=== PATIENT | female | born 2000 | race Caucasian/White ===

== ENCOUNTER 2021-05-06 02:51 | Observation (INO) | payer BC ==
[2021-05-06 03:04] VITALS: RESP 18; TEMP 97.9
[2021-05-06] MEDS ORDERED: SODIUM CHLORIDE 0.9% 1,000 ML IV ONE (03:08)
[2021-05-06] MEDS ORDERED: ACETAMINOPHEN TAB 325 MG TAB PO STA (03:19)
--- NOTE | 2021-05-06 03:19 | ED ---
Seizure HPI - General Chief Complaint: Seizure Stated Complaint: Seizure, Neck Pain Time Seen by Provider: 05/06/21 03:02 Source: patient, EMS Mode of arrival: EMS - History of Present Illness Initial Comments: This patient is a 21-year-old woman arriving tonight by ambulance for possible seizure. The patient had been at the home of a family member when she developed some convulsive movements of the head and upper extremities. This lasted quite some time and she had family called her father to bring her home. The patient then developed another episode, the father noted they were close to the EMS station in [place] and a stop there and she was brought here by ambulance. The patient does remain conscious throughout these episodes and is able to follow commands. She has had similar episodes to this going back a number of weeks. The episodes do cause pain in the neck and muscles. The patient did have some labs at another facility. She was scheduled to have MRI of the neck in the coming week but has not had any imaging performed. MD Complaint: possible seizure -: week(s) Description of Episode: tonic-clonic movement -: minutes(s) Witnessed: yes - by bystander Trauma: No Seizure History: none Place: home, other Possible Precipitating Event: none Associated Symptoms: denies other symptoms Treatments Prior to Arrival: benzodiazepines - Related Data Previous Rx's Medication Instructions Recorded LORazepam [Ativan] 1 mg PO TID 3 Days #9 tab 05/06/21 Allergies Allergy/AdvReac Type Severity Reaction Status Date / Time No Known Allergies Allergy Verified 05/06/21 03:07 Review of Systems ROS Statement: Those systems with pertinent positive or pertinent negative responses have been documented in the HPI. ROS Other: All systems not noted in ROS Statement are negative. Constitutional: Denies: fever, chills, weakness Eyes: Denies: eye pain, vision change Respiratory: Denies: cough, dyspnea Cardiovascular: Denies: chest pain, orthopnea, edema, syncope Gastrointestinal: Denies: abdominal pain, vomiting, diarrhea Genitourinary: Denies: dysuria, hematuria Musculoskeletal: Reports: myalgia. Denies: back pain Skin: Denies: rash Neurological: Denies: headache, weakness, numbness, confusion Past Medical History Past Medical History: No Reported History Additional Past Medical History / Comment(s): History of concussion History of Any Multi-Drug Resistant Organisms: None Reported Past Surgical History: No Surgical Hx Reported Past Psychological History: ADD/ADHD Smoking Status: Never smoker Past Alcohol Use History: None Reported Past Drug Use History: None Reported General Exam General appearance: alert, in no apparent distress Head exam: Present: atraumatic, normocephalic Eye exam: Present: normal appearance. Absent: scleral icterus, conjunctival injection ENT exam: Present: normal oropharynx Neck exam: Present: normal inspection, full ROM. Absent: tenderness, meningismus Respiratory exam: Present: normal lung sounds bilaterally. Absent: respiratory distress, wheezes, rales, rhonchi, stridor Cardiovascular Exam: Present: regular rate, normal rhythm, normal heart sounds. Absent: systolic murmur, diastolic murmur, rubs, gallop GI/Abdominal exam: Present: soft. Absent: distended, tenderness, guarding, rebound, rigid, mass Extremities exam: Present: normal inspection, normal capillary refill. Absent: pedal edema, calf tenderness Back exam: Present: normal inspection. Absent: CVA tenderness (R), CVA tenderness (L) Neurological exam: Present: alert, oriented X3, CN II-XII intact. Absent: motor sensory deficit Skin exam: Present: warm, dry, intact, normal color. Absent: rash Course Vital Signs 05/06/21 02:54 Temperature 97.9 F Pulse Rate 87 Respiratory 18 Rate Blood Pressure 112/69 O2 Sat by Pulse 97 Oximetry Medical Decision Making - Medical Decision Making Patient is a 21-year-old woman here to have evaluation of convulsive episodes. The patient's workup here is unremarkable. Patient was about to be discharged to have further follow-up with neurology when she did developed a second episode of the convulsions. They do not appear to be typical of generalized tonic- clonic seizure. The patient does remain conscious, alert, follows commands. The movements do involve of both sides of the body. There is no loss of continence. Given the number of episodes patient is having will admit to have neurology con sultation here. - Lab Data Result diagrams: 05/06/21 03:15 05/06/21 03:15 Lab Results 05/06/21 05/06/21 05/06/21 Range/Units 03:15 03:15 03:15 WBC 8.5 (3.8-10.6) k/uL RBC 3.46 L (3.80-5.40) m/uL Hgb 11.4 (11.4-16.0) gm/dL Hct 33.7 L (34.0-46.0) % MCV 97.4 (80.0-100.0) fL MCH 32.8 (25.0-35.0) pg MCHC 33.7 (31.0-37.0) g/dL RDW 11.8 (11.5-15.5) % Plt Count 178 (150-450) k/uL MPV 7.6 Neutrophils % 63 % Lymphocytes % 26 % Monocytes % 7 % Eosinophils % 1 % Basophils % 0 % Neutrophils # 5.4 (1.3-7.7) k/uL Lymphocytes # 2.2 (1.0-4.8) k/uL Monocytes # 0.6 (0-1.0) k/uL Eosinophils # 0.1 (0-0.7) k/uL Basophils # 0.0 (0-0.2) k/uL Sodium 139 (137-145) mmol/L Potassium 3.8 (3.5-5.1) mmol/L Chloride 112 H (98-107) mmol/L Carbon Dioxide 21 L (22-30) mmol/L Anion Gap 6 mmol/L BUN 18 H (7-17) mg/dL Creatinine 0.73 (0.52-1.04) mg/dL Est GFR (CKD-EPI)AfAm >90 (>60 ml/min/1.73 sqM) Est GFR (CKD-EPI)NonAf >90 (>60 ml/min/1.73 sqM) Glucose 99 (74-99) mg/dL Plasma Lactic Acid Juanito 0.7 (0.7-2.0) mmol/L Calcium 8.1 L (8.4-10.2) mg/dL Magnesium 1.7 (1.6-2.3) mg/dL Total Bilirubin 0.4 (0.2-1.3) mg/dL AST 17 (14-36) U/L ALT 9 (4-34) U/L Alkaline Phosphatase 55 (38-126) U/L Total Protein 5.6 L (6.3-8.2) g/dL Albumin 3.0 L (3.5-5.0) g/dL - EKG Data -: EKG Interpreted by Pr EKG shows normal: sinus rhythm, axis (Normal), intervals (Normal), QRS complexes (Normal), ST-T waves (Normal) Rate: normal (96 bpm) Interpretation: normal EKG Disposition Clinical Impression: Convulsive disorder Disposition: ADMITTED IP TO THIS HOSP Condition: Good Is patient prescribed a controlled substance at d/c from ED?: No
[2021-05-06 03:29] LABS: Basophils % (A) 0 %; Eosinophils # (A) 0.1 k/uL (0-0.7); Eosinophils % (A) 1 %; HCT 33.7 % (34.0-46.0); HGB 11.4 gm/dL (11.4-16.0); Lymphocytes # (A) 2.2 k/uL (1.0-4.8); Lymphocytes % (A) 26 %; MCH 32.8 pg (25.0-35.0); MCHC 33.7 g/dL (31.0-37.0); MCV 97.4 fL (80.0-100.0); Mean Platelet Volume 7.6; Monocytes # (A) 0.6 k/uL (0-1.0); Monocytes % (A) 7 %; Neutrophils # (A) 5.4 k/uL (1.3-7.7); Neutrophils % (A) 63 %; Platelet Count 178 k/uL (150-450); RBC 3.46 m/uL (3.80-5.40); RDW 11.8 % (11.5-15.5); WBC 8.5 k/uL (3.8-10.6)
[2021-05-06 03:53] LABS: ALT 9 U/L (4-34); AST 17 U/L (14-36); African American GFR (CKD) >90 (>60 ml/min/1.73 sqM); Alkaline Phosphatase 55 U/L (38-126); Anion Gap 6 mmol/L; Blood Urea Nitrogen 18 mg/dL (7-17); Calcium 8.1 mg/dL (8.4-10.2); Carbon Dioxide 21 mmol/L (22-30); Chloride 112 mmol/L (98-107); Glucose 99 mg/dL (74-99); Magnesium 1.7 mg/dL (1.6-2.3); Non-African American GFR(CKD) >90 (>60 ml/min/1.73 sqM); Potassium 3.8 mmol/L (3.5-5.1); Sodium 139 mmol/L (137-145); Total Bilirubin 0.4 mg/dL (0.2-1.3); Total Protein 5.6 g/dL (6.3-8.2)
[2021-05-06] MEDS ORDERED: LORazepam 2 MG/ML INJ IV STA (04:37)
--- NOTE | 2021-05-06 04:45 | CT ---
EXAMINATION TYPE: CT brain wo con DATE OF EXAM: 05/06/2021 COMPARISON: None HISTORY: seizure CT DLP: 1076.4 mGycm Automated exposure control for dose reduction was used. Ventricles have normal size. There is no mass effect nor midline shift. There is no sign of intracran ial hemorrhage. Calvarium is intact. There is no evidence of cerebral edema. Skull base is intact. Th ere is normal aeration of the mastoid sinuses. IMPRESSION: Negative unenhanced head CT scan.
[2021-05-06] MEDS ORDERED: NALOXONE 0.4 MG/ML 1 ML VIAL IV PRN (05:55)
[2021-05-06] MEDS ORDERED: ACETAMINOPHEN TAB 325 MG TAB PO PRN (05:55)
[2021-05-06 07:04] VITALS: BP 116/69; PULSE 80
[2021-05-06] MEDS ORDERED: ONDANSETRON 4 MG/2 ML VIAL IVP PRN (08:11)
--- NOTE | 2021-05-06 14:26 | P.CNNES ---
History of Present Illness Consult date: 05/06/21 History of Present Illness: The patient is a 21-year-old female who is seen in neurologic consultation on May 06, 2021. The patient's parents are present at the bedside at the time of the evaluation. They state that in January of this year, the patient was at a soccer game and subsequently developed a rash. Apparently several other people on the team as well as cold also developed a rash. The patient states the rash was intermittent for a little while and has since resolved. Following the resolution of the rash, the patient began to develop what is described as severe sharp pains in her neck. She says that her neck gets tight. She then begins to experience sharp pains in her neck and back and she has episodes of inability to control her arms and legs. She also reports I can't "control were I'm looking". She describes her leg movement as a "shiver". Apparently these episodes can last anywhere from 20 minutes to 2 hours. The patient is fully conscious while these movements are occurring. At some times, per the patient's mother, the patient's head is moving "back and forth". The patient has not seen a neurologist. She reportedly has been tested for numerous disorders. Lyme disease has been ruled out. According to the patient, the abnormal movements had abated for a while. Since this past Saturday they have restarted and are occurring every other day. These episodes tend to occur in around bedtime. In regards to the rash, the patient described this having a rash on her abdomen and her wrists which looked like small, raised red dots. She says they were very itchy. Other abnormal skin lesions appeared to be like a "bug bite". The patient is reportedly scheduled to have an MRI of her cervical spine, on May 09. She is also scheduled to see an orthopedic doctor. Past Medical History Past Medical History: No Reported History Additional Past Medical History / Comment(s): History of concussion History of Any Multi-Drug Resistant Organisms: None Reported Past Surgical History: No Surgical Hx Reported Past Psychological History: ADD/ADHD Smoking Status: Never smoker Past Alcohol Use History: None Reported Past Drug Use History: None Reported Medications and Allergies Home Medications Medication Instructions Recorded Confirmed Type Ibuprofen [Motrin] 600 mg PO QID PRN 05/06/21 05/06/21 History LORazepam [Ativan] 1 mg PO TID 3 Days #9 tab 05/06/21 Rx methocarbamoL [Robaxin] 500 mg PO TID PRN 05/06/21 05/06/21 History Allergies Allergy/AdvReac Type Severity Reaction Status Date / Time No Known Allergies Allergy Verified 05/06/21 08:21 Physical Examination - Vital Signs Vital Signs: Vital Signs Temp Pulse Resp BP Pulse Ox 05/06/21 07:03 80 18 116/69 97 05/06/21 02:54 97.9 F 87 18 112/69 97 Intake and Output 05/05/21 05/06/21 05/06/21 22:59 06:59 14:59 Other: Weight 58.967 kg Gen.: The patient is reclining on the gurney in the emergency department. She is well-nourished, well-developed and in no acute distress. HEENT: Head is atraumatic, normocephalic. Fundus not visualized. There is no scleral icterus. Mucous membranes are moist. Neck: Supple. There is no Lhermitte sign. Heart: Regular rate and rhythm Lungs: Clear to auscultation Extremities: Without edema Neurological examination Mental status: The patient is awake, alert and oriented 3. Her speech is clear. There is no dysarthria or aphasia. Cranial nerves: Pupils are equal at 5 mm and reactive. Visual quintanilla are full to confrontation. Extraocular movements are intact. There is mild left gaze nystagmus. Facial sensation is intact. There is no facial asymmetry. Hearing is grossly intact. Uvula and palate are midline. Shoulder shrug is symmetric. Tongue protrudes midline. Motor: Strength is 5/5 throughout Coordination: [id number]-[id number] and okbo-wa-kycp testing are intact. Rapid alternating movements are intact. Sensation: Grossly intact to light touch throughout. There is no extinction with double simultaneous stimulation. Deep tendon reflexes: 2+/4+ in the bilateral upper extremities and Achilles reflexes. Patellar reflexes are 3+/4+. Plantar response is flexor bilaterally. Gait: Not assessed Results - Laboratory Findings CBC and BMP: 05/06/21 03:15 05/06/21 03:15 Abnormal Lab Findings: Abnormal Labs 05/06/21 05/06/21 03:15 03:15 RBC 3.46 L Hct 33.7 L Chloride 112 H Carbon Dioxide 21 L BUN 18 H Calcium 8.1 L Total Protein 5.6 L Albumin 3.0 L Assessment and Plan Assessment: 1. Generallzed body tremors-not consistent with seizure-etiology as yet undetermined, consider possible infectious or autoimmune etiology versus psychogenic 2. History of neck pain 3. History of concussion 2 Plan: 1. The patient and parents were advised that this disorder is not consistent with seizure 2. I have advised the patient and her parents that she should keep her appointment for the MRI of her cervical spine. She should also keep the appointment with the orthopedic doctor 3. The patient was advised to see her family doctor and get a referral to see a neurologist 4. The patient is neurologically stable for discharge Time with Patient: Greater than 30 (spent 40 minutes with patient and parents via telemedicine)
--- NOTE | 2021-05-10 07:55 | P.HPIM ---
History of Present Illness H&P Date: 05/06/21 Chief Complaint: seizure 21-year-old woman arriving tonight by ambulance for possible seizure. The patient had been at the home of a family member when she developed some con vulsive movements of the head and upper extremities. This lasted quite some time and she had family called her father to bring her home. The patient then developed another episode, the father noted they were close to the EMS station in [place] and a stop there and she was brought here by ambulance. The patient does remain conscious throughout these episodes and is able to follow commands. She has had similar episodes to this going back a number of weeks. The episodes do cause pain in the neck and muscles. The patient did have some labs at another facility. She was scheduled to have MRI of the neck in the coming week but has not had any imaging performed. Review of Systems Constitutional: Denies: fever, chills, weakness Eyes: Denies: eye pain, vision change Respiratory: Denies: cough, dyspnea Cardiovascular: Denies: chest pain, orthopnea, edema, syncope Gastrointestinal: Denies: abdominal pain, vomiting, diarrhea Genitourinary: Denies: dysuria, hematuria Musculoskeletal: Reports: myalgia. Denies: back pain Skin: Denies: rash Neurological: Denies: headache, weakness, numbness, confusion Past Medical History Past Medical History: No Reported History Additional Past Medical History / Comment(s): History of concussion History of Any Multi-Drug Resistant Organisms: None Reported Past Surgical History: No Surgical Hx Reported Past Psychological History: ADD/ADHD Smoking Status: Never smoker Past Alcohol Use History: None Reported Past Drug Use History: None Reported Medications and Allergies Home Medications Medication Instructions Recorded Confirmed Type Acetaminophen Tab [Tylenol] 650 mg PO Q6HR PRN tab 05/06/21 Rx Ibuprofen [Motrin] 600 mg PO QID PRN 05/06/21 05/06/21 History LORazepam [Ativan] 1 mg PO TID 3 Days #9 tab 05/06/21 Rx methocarbamoL [Robaxin] 500 mg PO TID PRN 05/06/21 05/06/21 History Allergies Allergy/AdvReac Type Severity Reaction Status Date / Time No Known Allergies Allergy Verified 05/06/21 08:21 Physical Exam Vitals: Vital Signs Temp Pulse Resp BP Pulse Ox 05/06/21 07:03 80 18 116/69 97 05/06/21 02:54 97.9 F 87 18 112/69 97 Intake and Output 05/05/21 05/06/21 05/06/21 22:59 06:59 14:59 Other: Weight 58.967 kg General appearance: alert, in no apparent distress Head exam: Present: atraumatic, normocephalic Eye exam: Present: normal appearance. Absent: scleral icterus, conjunctival injection ENT exam: Present: normal oropharynx Neck exam: Present: normal inspection, full ROM. Absent: tenderness, meningismus Respiratory exam: Present: normal lung sounds bilaterally. Absent: respiratory distress, wheezes, rales, rhonchi, stridor Cardiovascular Exam: Present: regular rate, normal rhythm, normal heart sounds. Absent: systolic murmur, diastolic murmur, rubs, gallop GI/Abdominal exam: Present: soft. Absent: distended, tenderness, guarding, rebound, rigid, mass Extremities exam: Present: normal inspection, normal capillary refill. Absent: pedal edema, calf tenderness Back exam: Present: normal inspection. Absent: CVA tenderness (R), CVA tenderness (L) Neurological exam: Present: alert, oriented X3, CN II-XII intact. Absent: motor sensory deficit Skin exam: Present: warm, dry, intact, normal color. Absent: rash Results CBC & Chem 7: 05/06/21 03:15 05/06/21 03:15 Labs: Abnormal Lab Results - Last 24 Hours (Table) 05/06/21 05/06/21 Range/Units 03:15 03:15 RBC 3.46 L (3.80-5.40) m/uL Hct 33.7 L (34.0-46.0) % Chloride 112 H (98-107) mmol/L Carbon Dioxide 21 L (22-30) mmol/L BUN 18 H (7-17) mg/dL Calcium 8.1 L (8.4-10.2) mg/dL Total Protein 5.6 L (6.3-8.2) g/dL Albumin 3.0 L (3.5-5.0) g/dL Assessment and Plan Assessment: 1. Possible siezures; - Patient has been evaluated by tele-neurology and episode is deemed not consistent with seizure activity and recommended to consider possible infectious or autoimmune etiology versus psychogenic 2. History of neck pain/ Skin rash In regards to the rash, the patient described this having a rash on her abdomen and her wrists which looked like small, raised red dots. She says they were very itchy. Other abnormal skin lesions appeared to be like a "bug bite". The patient is reportedly scheduled to have an MRI of her cervical spine, on May 09. She is also scheduled to see an orthopedic doctor 3. History of concussion 2 Plan: --- advised the patient and her parents that she should keep her appointment for the MRI of her cervical spine. She should also keep the appointment with the orthopedic doctor --patient will see her family doctor and get a referral to see a neurologist - patient is cleared neurologically for discharge This plan was discussed with patient and mother at bedside and they are agreeable
--- NOTE | 2021-05-10 07:56 | P.DS ---
Providers Date of admission: 05/06/21 05:55 Expected date of discharge: 05/06/21 Attending physician: Sandee Bowers Consults: 05/06/21 05:56 Consult Physician Urgent Consulting Provider: Samina Calzada Consult Reason/Comments: Convulsive episodes Do you want consulting provider notified?: Yes Primary care physician: [facility] Course: 21-year-old woman arriving tonight by ambulance for possible seizure. The patient had been at the home of a family member when she developed some convulsive movements of the head and upper extremities. This lasted quite some time and she had family called her father to bring her home. The patient then developed another episode, the father noted they were close to the EMS station in [place] and a stop there and she was brought here by ambulance. The patient does remain conscious throughout these episodes and is able to follow commands. She has had similar episodes to this going back a number of weeks. The episodes do cause pain in the neck and muscles. The patient did have some labs at another facility. She was scheduled to have MRI of the neck in the coming week but has not had any imaging performed. 1. Possible siezures; - Patient has been evaluated by tele-neurology and episode is deemed not consistent with seizure activity and recommended to consider possible infectious or autoimmune etiology versus psychogenic 2. History of neck pain/ Skin rash In regards to the rash, the patient described this having a rash on her abdomen and her wrists which looked like small, raised red dots. She says they were very itchy. Other abnormal skin lesions appeared to be like a "bug bite". The patient is reportedly scheduled to have an MRI of her cervical spine, on May 09. She is also scheduled to see an orthopedic doctor 3. History of concussion 2 Plan: --- advised the patient and her parents that she should keep her appointment for the MRI of her cervical spine. She should also keep the appointment with the orthopedic doctor --patient will see her family doctor and get a referral to see a neurologist - patient is cleared neurologically for discharge This plan was discussed with patient and mother at bedside and they are agreeable Patient Condition at Discharge: Good Plan - Discharge Summary New Discharge Prescriptions: New LORazepam [Ativan] 1 mg PO TID 3 Days #9 tab Acetaminophen Tab [Tylenol] 650 mg PO Q6HR PRN tab PRN Reason: Mild Pain Or Fever > 100.5 Continue methocarbamoL [Robaxin] 500 mg PO TID PRN PRN Reason: Pain Ibuprofen [Motrin] 600 mg PO QID PRN PRN Reason: Pain Discharge Medication List Acetaminophen Tab [Tylenol] 650 mg PO Q6HR PRN tab 05/06/21 [Rx] Ibuprofen [Motrin] 600 mg PO QID PRN 05/06/21 [History] LORazepam [Ativan] 1 mg PO TID 3 Days #9 tab 05/06/21 [Rx] methocarbamoL [Robaxin] 500 mg PO TID PRN 05/06/21 [History] Follow up Appointment(s)/Referral(s): Lexie Whitman MD [Primary Care Provider] - 1-2 days Randy Abreu MD [STAFF PHYSICIAN] - 1-2 days Patient Instructions/Handouts: Seizure/Epilepsy Discharge Instructions & Follow-Up Discharge Disposition: HOME SELF-CARE
== END 2021-05-06 16:45 | disposition home or self-care (01) ==
LOC: EC 02:51 → 6NMEDSUR 05:55
PROVIDERS: ADMIT Hospitalist; ATTEND Hospitalist
DX: R25.1 Tremor, unspecified (principal); M54.2 Cervicalgia; L98.9 Disorder of the skin and subcutaneous tissue, unspecified; F90.9 Attention-deficit hyperactivity disorder, unspecified type; Z20.822 Contact with and (suspected) exposure to COVID-19; Z87.820 Personal history of traumatic brain injury; Z79.899 Other long term (current) drug therapy; Z71.9 Counseling, unspecified
CPT/HCPCS: 96361; 96374; 99285; 36415; 93005; 80053; 83605; 83735; 85025; 87635; 70450; G0378; J2060

== ENCOUNTER 2021-12-28 16:00 | Emergency (ER) | payer BC, OTHER ==
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
[2021-12-28 16:28] VITALS: RESP 20; TEMP 98.4
[2021-12-28 16:41] LABS: Basophils # (A) 0.1 k/uL (0-0.2); Basophils % (A) 0 %; Eosinophils # (A) 0.1 k/uL (0-0.7); Eosinophils % (A) 1 %; HCT 39.4 % (34.0-46.0); HGB 13.2 gm/dL (11.4-16.0); Lymphocytes # (A) 2.4 k/uL (1.0-4.8); Lymphocytes % (A) 19 %; MCH 31.3 pg (25.0-35.0); MCHC 33.4 g/dL (31.0-37.0); MCV 93.7 fL (80.0-100.0); Mean Platelet Volume 7.6; Monocytes % (A) 7 %; Neutrophils # (A) 9.3 k/uL (1.3-7.7); Neutrophils % (A) 71 %; Platelet Count 212 k/uL (150-450); RDW 11.2 % (11.5-15.5); WBC 13.1 k/uL (3.8-10.6)
[2021-12-28 16:48] LABS: ALT 17 U/L (4-34); AST 28 U/L (14-36); African American GFR (CKD) >90 (>60 ml/min/1.73 sqM); Albumin 4.4 g/dL (3.5-5.0); Alkaline Phosphatase 66 U/L (38-126); Anion Gap 10 mmol/L; Blood Urea Nitrogen 19 mg/dL (7-17); Calcium 9.4 mg/dL (8.4-10.2); Carbon Dioxide 22 mmol/L (22-30); Chloride 106 mmol/L (98-107); Glucose 120 mg/dL (74-99); Lipase 68 U/L (23-300); Non-African American GFR(CKD) >90 (>60 ml/min/1.73 sqM); Sodium 138 mmol/L (137-145); Total Bilirubin 0.7 mg/dL (0.2-1.3); Total Protein 7.2 g/dL (6.3-8.2)
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
[2021-12-28 18:14] LABS: Appearance,Urine Clear (Clear); Bilirubin,Urine Negative (Negative); Blood,Urine Trace (Negative); Color,Urine Yellow; Glucose,Urine (UA) Negative (Negative); Hyaline Casts,Urine 1 /lpf (0-2); Ketones,Urine Negative (Negative); Leukocyte Esterase,Urine Negative (Negative); Mucus,Urine Rare /hpf; Nitrite,Urine Negative (Negative); PH, Urine 6.5 (5.0-8.0); Protein,Urine 1+ (Negative); RBC,Urine 10 /hpf (0-5); Squamous Epithelial Cell,Urine <1 /hpf (0-4); WBC,Urine 4 /hpf (0-5)
[2021-12-28 19:18] VITALS: BP 121/71; PULSE 82
== END 2021-12-28 19:00 | disposition home or self-care (01) ==
LOC: EC 16:00
DX: M79.645 Pain in left finger(s) (principal); M79.644 Pain in right finger(s); M25.551 Pain in right hip; D72.829 Elevated white blood cell count, unspecified; V89.2XXA Person injured in unspecified motor-vehicle accident, traffic, initial encounter
CPT/HCPCS: 36415; 70450; 71045; 72125; 72170; 80053; 81001; 81025; 83690; 85025; 93005; 99285

== ENCOUNTER 2022-08-03 04:23 | Emergency (ER) | payer BC ==
[2022-08-03 04:30] VITALS: BP 122/76; PULSE 80; RESP 16; TEMP 97.7
[2022-08-03] MEDS ORDERED: Acetaminophen-Codeine 300-30mg TAB PO STA (04:50)
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
== END 2022-08-03 05:08 | disposition home or self-care (01) ==
LOC: EC 04:23
DX: G93.40 Encephalopathy, unspecified (principal)
CPT/HCPCS: 99283

== ENCOUNTER 2024-04-26 10:53 | Emergency (ER) | payer BC ==
[2024-04-26 10:57] VITALS: RESP 18
[2024-04-26] MEDS: SODIUM CHLORIDE 0.9% 1,000 ML IV STA (11:21)
[2024-04-26] MEDS: KETOROLAC 15 MG/ML 1 ML VIAL IVP STA (11:22)
--- NOTE | 2024-04-26 11:22 | ED ---
Abdominal Pain HPI - General Chief Complaint: Abdominal Pain Stated Complaint: Abdominal Pain Time Seen by Provider: 04/26/24 11:07 Source: patient, RN notes reviewed Mode of arrival: ambulatory Limitations: no limitations - History of Present Illness Initial Comments: 24-year-old female presents emergency department complaint of abdominal pain. Patient states started few hours ago. Patient states its primarily right lower quadrant worse with movement does admit that it was sudden onset of pain denies any flank pain no history of kidney stones no prior abdominal surgeries denies any chance of . Patient states that she has no associated nausea vomiting diarrhea constipation issues. - Related Data Home Medications Medication Instructions Recorded Confirmed Ibuprofen [Motrin] 600 mg PO QID PRN 05/06/21 05/06/21 methocarbamoL [Robaxin] 500 mg PO TID PRN 05/06/21 05/06/21 Previous Rx's Medication Instructions Recorded Acetaminophen Tab [Tylenol] 650 mg PO Q6HR PRN tab 05/06/21 LORazepam [Ativan] 1 mg PO TID 3 Days #9 tab 05/06/21 Allergies Allergy/AdvReac Type Severity Reaction Status Date / Time No Known Allergies Allergy Verified 04/26/24 10:54 Review of Systems ROS Statement: Those systems with pertinent positive or pertinent negative responses have been documented in the HPI. ROS Other: All systems not noted in ROS Statement are negative. Past Medical History Past Medical History: No Reported History Additional Past Medical History / Comment(s): History of concussion History of Any Multi-Drug Resistant Organisms: None Reported Past Surgical History: No Surgical Hx Reported Past Psychological History: ADD/ADHD Smoking Status: Never smoker Past Alcohol Use History: None Reported Past Drug Use History: None Reported General Exam Limitations: no limitations General appearance: alert, in no apparent distress Head exam: Present: atraumatic, normocephalic, normal inspection Eye exam: Present: normal appearance, PERRL, EOMI. Absent: scleral icterus, conjunctival injection, periorbital swelling Neck exam: Present: normal inspection. Absent: tenderness, meningismus, lymphadenopathy Respiratory exam: Present: normal lung sounds bilaterally. Absent: respiratory distress, wheezes, rales, rhonchi, stridor Cardiovascular Exam: Present: regular rate, normal rhythm, normal heart sounds. Absent: systolic murmur, diastolic murmur, rubs, gallop, clicks GI/Abdominal exam: Present: soft, tenderness (Moderate right lower quadrant), normal bowel sounds. Absent: distended, guarding, rebound, rigid Course Vital Signs 04/26/24 10:54 Temperature 98.2 F Pulse Rate 77 Respiratory 18 Rate Blood Pressure 114/72 O2 Sat by Pulse 100 Oximetry Medical Decision Making - Medical Decision Making Was pt. sent in by a medical professional or institution (, [facility], [facility] [employer], urgent care, hospital, or fci...) When possible be specific @ -No Did you speak to anyone other than the patient for history (EMS, parent, family, police, friend...)? What history was obtained from this source @ -No Did you review nursing and triage notes (agree or disagree)? Why? @ -I reviewed and agree with nursing and triage notes Were old charts reviewed (outside hosp., previous admission, EMS record, old EKG, old radiological studies, urgent care reports/EKG's, fci records)? Report findings @ -No old charts were reviewed Differential Diagnosis (chest pain, altered mental status, abdominal pain women, abdominal pain men, vaginal bleeding, weakness, fever, dyspnea, syncope, headache, dizziness, GI bleed, back pain, seizure, CVA, palpatations, mental health, musculoskeletal)? @-Differential Abdominal Pain Women: Appendicitis, Cholecystitis, diverticulosis, ischemic bowel, pancreatitis, hepatitis, UTI, gastroenteritis, AAA, incarcerated hernia, bowel obstruction, constipation, inflammatory bowel, hepatitis, peptic ulcer disease, splenic infarction, perforated viscus, vulvitis, ovarian torsion, PID, kidney stone, placenta abruption, this is not meant to be an all-inclusive list EKG interpreted by me (3pts min.). @ -None X-rays interpreted by me (1pt min.). @ -None done CT interpreted by me (1pt min.). @ -CT abdomen pelvis showing no acute intra-abdominal process, there is moderate constipation noted U/S interpreted by me (1pt. min.). @ -None done What testing was considered but not performed or refused? (CT, X-rays, U/S, labs)? Why? @ -None What meds were considered but not given or refused? Why? @ -None Did you discuss the management of the patient with other professionals (pro fessionals i.e. Dr., PA, [employer], lab, RT, psych nurse, social welfare clerk, administrative services coordinator, teacher, chief juvenile probation officer, watch caser)? Give summary @ -No Was smoking cessation discussed for >3mins.? @ -No Was critical care preformed (if so, how long)? @ -No Were there social determinants of health that impacted care today? How? (Homelessness, low income, unemployed, alcoholism, drug addiction, transportation, low edu. Level, literacy, decrease access to med. care, intermediate, rehab)? @ -No Was there de-escalation of care discussed even if they declined (Discuss DNR or withdrawal of care, Hospice)? DNR status @ -No What co-morbidities impacted this encounter? (DM, HTN, Smoking, COPD, CAD, Cancer, CVA, ARF, Chemo, Hep., AIDS, mental health diagnosis, sleep apnea, morbid obesity)? @ -None Was patient admitted / discharged? Hospital course, mention meds given and route, prescriptions, significant lab abnormalities, going to OR and other pertinent info. @ -Discharge patient presented for right lower quadrant abdominal pain. Patient gave for completing labs CT urinalysis patient's found to be constipated no acute process. Patient is discharged in stable condition return parameters sara. Undiagnosed new problem with uncertain prognosis? @ -No Drug Therapy requiring intensive monitoring for toxicity (Heparin, Nitro, Insulin, Cardizem)? @ -No Were any procedures done? @ -No Diagnosis/symptom? @ -Abdominal pain, constipation Acute, or Chronic, or Acute on Chronic? @ -Acute Uncomplicated (without systemic symptoms) or Complicated (systemic symptoms)? @ -Uncomplicated Side effects of treatment? @ -No Exacerbation, Progression, or Severe Exacerbation? @ -No Poses a threat to life or bodily function? How? (Chest pain, USA, MD, pneumonia, PE, COPD, DKA, ARF, appy, cholecystitis, CVA, Diverticulitis, Homicidal, Suicidal, threat to staff... and all critical care pts) @ -No - Lab Data Result diagrams: 04/26/24 11:12 04/26/24 11:12 Lab Results 04/26/24 04/26/24 04/26/24 Range/Units 11:12 11:12 11:24 WBC 7.8 (3.8-10.6) k/uL RBC 3.96 (3.80-5.40) m/uL Hgb 12.5 (11.4-16.0) gm/dL Hct 36.4 (34.0-46.0) % MCV 91.7 (80.0-100.0) fL MCH 31.4 (25.0-35.0) pg MCHC 34.3 (31.0-37.0) g/dL RDW 12.3 (11.5-15.5) % Plt Count 234 (150-450) k/uL MPV 7.6 Neutrophils % 53 % Lymphocytes % 35 % Monocytes % 6 % Eosinophils % 3 % Basophils % 0 % Neutrophils # 4.1 (1.3-7.7) k/uL Lymphocytes # 2.7 (1.0-4.8) k/uL Monocytes # 0.5 (0-1.0) k/uL Eosinophils # 0.2 (0-0.7) k/uL Basophils # 0.0 (0-0.2) k/uL Sodium 140 (137-145) mmol/L Potassium 3.9 (3.5-5.1) mmol/L Chloride 108 H (98-107) mmol/L Carbon Dioxide 23 (22-30) mmol/L Anion Gap 9 mmol/L BUN 14 (7-17) mg/dL Creatinine 0.79 (0.52-1.04) mg/dL Est GFR (CKD-EPI)AfAm >90 (>60 ml/min/1.73 sqM) Est GFR (CKD-EPI)NonAf >90 (>60 ml/min/1.73 sqM) Glucose 92 (74-99) mg/dL Calcium 9.3 (8.4-10.2) mg/dL Total Bilirubin 0.8 (0.2-1.3) mg/dL AST 20 (14-36) U/L ALT 14 (4-34) U/L Alkaline Phosphatase 71 (38-126) U/L Total Protein 7.1 (6.3-8.2) g/dL Albumin 4.2 (3.5-5.0) g/dL Lipase 59 (23-300) U/L Urine Color Colorless Urine Appearance Clear (Clear) Urine pH 5.0 (5.0-8.0) Ur Specific [place] 1.018 (1.001-1.035) Urine Protein Negative (Negative) Urine Glucose (UA) Negative (Negative) Urine Ketones Negative (Negative) Urine Blood Negative (Negative) Urine Nitrite Negative (Negative) Urine Bilirubin Negative (Negative) Urine Urobilinogen <2.0 (<2.0) mg/dL Ur Leukocyte Esterase Negative (Negative) Urine HCG, Qual (Not Detectd) 04/26/24 Range/Units 11:24 WBC (3.8-10.6) k/uL RBC (3.80-5.40) m/uL Hgb (11.4-16.0) gm/dL Hct (34.0-46.0) % MCV (80.0-100.0) fL MCH (25.0-35.0) pg MCHC (31.0-37.0) g/dL RDW (11.5-15.5) % Plt Count (150-450) k/uL MPV Neutrophils % % Lymphocytes % % Monocytes % % Eosinophils % % Basophils % % Neutrophils # (1.3-7.7) k/uL Lymphocytes # (1.0-4.8) k/uL Monocytes # (0-1.0) k/uL Eosinophils # (0-0.7) k/uL Basophils # (0-0.2) k/uL Sodium (137-145) mmol/L Potassium (3.5-5.1) mmol/L Chloride (98-107) mmol/L Carbon Dioxide (22-30) mmol/L Anion Gap mmol/L BUN (7-17) mg/dL Creatinine (0.52-1.04) mg/dL Est GFR (CKD-EPI)AfAm (>60 ml/min/1.73 sqM) Est GFR (CKD-EPI)NonAf (>60 ml/min/1.73 sqM) Glucose (74-99) mg/dL Calcium (8.4-10.2) mg/dL Total Bilirubin (0.2-1.3) mg/dL AST (14-36) U/L ALT (4-34) U/L Alkaline Phosphatase (38-126) U/L Total Protein (6.3-8.2) g/dL Albumin (3.5-5.0) g/dL Lipase (23-300) U/L Urine Color Urine Appearance (Clear) Urine pH (5.0-8.0) Ur Specific [place] (1.001-1.035) Urine Protein (Negative) Urine Glucose (UA) (Negative) Urine Ketones (Negative) Urine Blood (Negative) Urine Nitrite (Negative) Urine Bilirubin (Negative) Urine Urobilinogen (<2.0) mg/dL Ur Leukocyte Esterase (Negative) Urine HCG, Qual Not Detected (Not Detectd) Disposition Clinical Impression: Constipation, Abdominal pain Disposition: HOME SELF-CARE Condition: Stable Instructions (If sedation given, give patient instructions): Abdominal Pain (ED) Additional Instructions: Please return to the Emergency Department if symptoms worsen or any other concerns. Is patient prescribed a controlled substance at d/c from ED?: No Referrals: Lexie Whitman MD [Primary Care Provider] - 1-2 days Time of Disposition: 12:36
[2024-04-26 11:31] LABS: ALT 14 U/L (4-34); AST 20 U/L (14-36); African American GFR (CKD) >90 (>60 ml/min/1.73 sqM); Albumin 4.2 g/dL (3.5-5.0); Alkaline Phosphatase 71 U/L (38-126); Anion Gap 9 mmol/L; Blood Urea Nitrogen 14 mg/dL (7-17); Calcium 9.3 mg/dL (8.4-10.2); Carbon Dioxide 23 mmol/L (22-30); Chloride 108 mmol/L (98-107); Glucose 92 mg/dL (74-99); Lipase 59 U/L (23-300); Non-African American GFR(CKD) >90 (>60 ml/min/1.73 sqM); Potassium 3.9 mmol/L (3.5-5.1); Sodium 140 mmol/L (137-145); Total Bilirubin 0.8 mg/dL (0.2-1.3); Total Protein 7.1 g/dL (6.3-8.2)
[2024-04-26 11:34] LABS: Appearance,Urine Clear (Clear); Bilirubin,Urine Negative (Negative); Blood,Urine Negative (Negative); Color,Urine Colorless; Glucose,Urine (UA) Negative (Negative); Ketones,Urine Negative (Negative); Leukocyte Esterase,Urine Negative (Negative); Nitrite,Urine Negative (Negative); Protein,Urine Negative (Negative); Specific Gravity,Urine 1.018 (1.001-1.035); Urobilinogen,Urine <2.0 mg/dL (<2.0)
[2024-04-26 11:41] LABS: Basophils % (A) 0 %; Eosinophils # (A) 0.2 k/uL (0-0.7); Eosinophils % (A) 3 %; HCT 36.4 % (34.0-46.0); HGB 12.5 gm/dL (11.4-16.0); Lymphocytes # (A) 2.7 k/uL (1.0-4.8); Lymphocytes % (A) 35 %; MCH 31.4 pg (25.0-35.0); MCHC 34.3 g/dL (31.0-37.0); MCV 91.7 fL (80.0-100.0); Mean Platelet Volume 7.6; Monocytes # (A) 0.5 k/uL (0-1.0); Monocytes % (A) 6 %; Neutrophils # (A) 4.1 k/uL (1.3-7.7); Neutrophils % (A) 53 %; Platelet Count 234 k/uL (150-450); RBC 3.96 m/uL (3.80-5.40); RDW 12.3 % (11.5-15.5); WBC 7.8 k/uL (3.8-10.6)
--- NOTE | 2024-04-26 12:21 | CT ---
EXAMINATION TYPE: CT abdomen pelvis w con DATE OF EXAM: 04/26/2024 12:09 PM COMPARISON: CT abdomen pelvis most recent from CLINICAL INDICATION: Female, 24 years old with history of abdominal pain; RT sided abdominal pain crystal t started today. TECHNIQUE: Axial CT abdomen pelvis w con;Sagittal and coronal reformats were created on a separate w orkstation. Contrast used:100ml mL of Isovue 300 with IV Contrast, (none if empty) Oral contrast used: without Oral Contrast (none if empty) CT DLP: 484.8 mGycm, Automated exposure control for dose reduction was used. FINDINGS: LOWER CHEST: Unremarkable ABDOMEN LIVER: Unremarkable GALLBLADDER AND BILE DUCTS: Unremarkable. PANCREAS: Unremarkable. SPLEEN: Unremarkable. ADRENAL GLANDS: Unremarkable. KIDNEYS AND URETERS: No evidence of hydronephrosis or obstructive renal calculus. Nonobstructing righ t 3 mm contrast. The ureters are unremarkable. PELVIS BLADDER: No evidence for wall thickening or mass given limitations of exam. REPRODUCTIVE: Left ovarian dominant follicle measuring up to 18 mm. ABDOMEN & PELVIS STOMACH AND BOWEL: No evidence of bowel obstruction. Large stool burden in the colon. The appendix is visualized and within normal limits. There is redundant colon noted. PERITONEUM/RETROPERITONEUM: Trace fluid is seen within the pelvis, no evidence of pneumoperitoneum. VASCULATURE: No evidence of aortic aneurysm. MUSCULOSKELETAL: No acute osseous abnormalities LYMPH NODES: No gross evidence for lymphadenopathy. SOFT TISSUE/ABDOMINAL WALL: Unremarkable IMPRESSION: 1. No evidence for acute abdominal process. No evidence for obstructive uropathy. The appendix appea rs normal. 2. Large stool burden in somewhat redundant colon. 3. Nonobstructing 3 mm right renal calculus. [facility], , 04/26/2024 12:18 PM
[2024-04-26 12:58] VITALS: BP 107/62; PULSE 63; TEMP 98.3
== END 2024-04-26 13:00 | disposition home or self-care (01) ==
LOC: EC 10:53
DX: K59.00 Constipation, unspecified (principal)
CPT/HCPCS: 99284; 96374; 96361; 36415; 80053; 83690; 85025; 81003; 81025; 74177; J1885; Q9967